=== PATIENT | female | born 1960 | race Caucasian/White ===

== ENCOUNTER 2016-07-07 14:15 | Inpatient (IN) ==
[2016-07-07] MEDS ORDERED: Acetaminophen 325 MG TABLET PO PRN (18:13)
[2016-07-07] MEDS ORDERED: Ondansetron 4 MG/2 ML VIAL IVP PRN (18:13)
[2016-07-07] MEDS ORDERED: Naloxone 0.4 MG/ML INJ IVP PRN (18:13)
[2016-07-07] MEDS: Pantoprazole 40 MG VIAL IVP SCH (19:56)
--- NOTE | 2016-07-07 20:01 | Internal Med History&Physical ---
<WolfgangZach - Last Filed: 07/07/16 22:19> Date of Encounter: 07/07/16 Time of Encounter: 19:56 Assessment and Plan (1) Decompensated hepatic cirrhosis Current visit: No Status: Acute Patient's presentation likely due to non-compliance as she has been without her medications for at least a month She certainly needs paracentesis, but her INR is 2.2 upon admission; will correct with 2 units FFP and 5 mg Vit K and recheck INR in AM Last paracentesis in February, fluid analysis showed transudative fluid Start Lasix IV 40 mg BID Avoid hepatotoxic agents, restart previously prescribed home medications: Aldactone and Rifaximin (2) Ascites Current visit: No Status: Acute Worsening ascities over past month secondary to medication non-compliance Will correct coagulopathy as above prior to paracentesis Start IV Lasix 40 mg BID, re-start Aldactone Qualifiers: Ascites type: due to alcoholic cirrhosis Qualified Code(s): K70.31 - Alcoholic cirrhosis of liver with ascites (3) Coagulopathy Current visit: No Status: Acute INR of 2.2 upon admission likely secondary to cirrhosis Will give 2 units FFP and 1 dose of vit K prior to paracentesis (4) Chronic anemia Current visit: Yes Status: Acute Hb initially 7.4, close to her baseline She currently does not have any signs/symptoms of bleeding MCV has been >100, will obtain B12/Folate levels in AM Patient has been typed and screened, may transfuse RBCs if next Hb drops below 7 (5) Thrombocytopenia Current visit: No Status: Chronic Chronic, platelets levels near baseline No active bleeding at this time, will correct coagulopathy as above (6) DVT prophylaxis Current visit: No Status: Acute SCDs in setting of coagulopathy and anemia Internal Medicine - H&P: HPI Chief complaint: abdominal distention Admitted From: Home Plans for Post Hospital Care: Home History of present illness: Ms. Shore is a 56 year old female who was transferred from the emergency department at [facility] with abdominal distention. She has a history of cirrhosis secondary to hepatitis C and was recently hospitalized last February and had 3 L removed from paracentesis. She states that she has been without medications for at least a month, including not having any diuretics, as she does not have a PCP and unable to get prescriptions. During this time, her belly has gotten progressively more distended and she experiences abdominal pain, shortness of breath with exertion and swelling in her lower extremities. She does not have chest pain, diarrhea, vomiting, or fevers, but does admit to 2 days of hematochezia last week that resolved on its own. She did see Dr. De La Cruz as outpatient one time after her previous hospitalization but has not followed up since. She denies needing frequent paracentesis, as her last one prior to February was roughly 3 years ago. Past Med Surg Social Fam HX - Past Medical History Medical history: asthma, cirrhosis, COPD, GERD, hepatitis Psychiatric history: anxiety, depression - Past Surgical History Surgical History: hysterectomy - Social History Smoking Status: Current every day smoker Smokeless Tobacco Status: No Alcohol use: none, rarely Drug use: none - Family History Sister Hx Family Endocrine Disorder: Yes (diabetes) Internal Medicine - H&P: Meds Lisinopril [Zestril] 5 mg PO DAILY 03/10/16 [History] Potassium Chloride [K-Tab ER] 20 meq PO DAILY 03/10/16 [History] Simethicone [Bicarsim] 80 mg PO AD 03/10/16 [History] Furosemide [Lasix] 20 mg PO DAILY #30 tablet 03/17/16 [Rx] Rifaximin [Xifaxan] 550 mg PO BID #60 tablet 03/17/16 [Rx] Spironolactone [Aldactone] 100 mg PO DAILY #60 tablet 03/17/16 [Rx] Allergies Sulfa (Sulfonamide Antibiotics) Allergy (Verified 07/07/16 11:55) Hives All Systems PM: A 10-system review of systems was performed and is negative for pertinent findings except as documented above in the HPI. - Constitutional Constitutional: no chills, no fever(s), no night sweats - EENT Eyes: no change in vision, no discharge, no pain, no photophobia Ears: no ear discharge, no ear pain, no tinnitus Nose, mouth and throat: no dysphagia, no nasal discharge, no neck pain, no sore throat - Cardiovascular Cardiovascular ROS IM: dyspnea, dyspnea on exertion, no chest pain, no diaphoresis, no lightheadedness, no palpitations, no syncope - Respiratory Respiratory: no cough, no dyspnea, no wheezing, no excessive phlegm production - Gastrointestinal Gastrointestinal: abdominal pain, hematochezia (last week, resolved on its own) , no diarrhea, no hematemesis, no melena, no nausea, no vomiting - Genitourinary Genitourinary: no change in urinary stream, no dysuria, no flank pain, no hematuria - Musculoskeletal Musculoskeletal ROS IM: no numbness, no tingling - Integumentary Integumentary IM: no rash, no unusual bruising - Neurological Neurological ROS: no confusion, no convulsions, no focal weakness, no numbness, no tingling, no tremor(s) - Hematologic/Lymphatic Hematologic/Lymphatic: no easy bruising - Constitutional Vitals: Temp Pulse Resp BP Pulse Ox 97.8 F 82 16 110/60 98 07/07/16 16:03 07/07/16 16:03 07/07/16 16:03 07/07/16 16:03 07/07/16 18:23 General appearance: Present: cooperative, mild distress (from abdominal discomfort), pleasant, answers questions appropriately - Head Head exam: Present: atraumatic, normocephalic - Eye Eye exam: Present: PERRL, conjuntiva pink, sclera anicteric - Neck Neck exam general surgery: Present: supple, trachea midline. Absent: lymphadenopathy - Respiratory Respiratory exam: Present: CTAB. Absent: accessory muscle use, rales, rhonchi, wheezes - Cardiovascular Cardiovascular exam: Present: RRR, +S1, +S2, systolic murmur. Absent: diastolic murmur, gallop, rubs - GI/Abdominal GI/Abdominal exam: Present: normal bowel sounds, soft, tenderness (worse in epigastric area), no peritoneal signs. Absent: distended - Extremities Exam Extremities exam: Present: pedal edema (2+ pitting), warm, radial pulses palpable and symetrical. Absent: calf tenderness, cyanotic - Neurological Exam Neurological exam: Present: alert, no focal deficits. Absent: facial droop, speech deficit - Skin Skin exam: Present: dry, intact <Supa Kumar - Last Filed: 07/08/16 06:36> Date of Encounter: 07/08/16 Internal Medicine - H&P: HPI History of present illness: Ms. Shore is a 56 year old female All Systems PM: A 10-system review of systems was performed and is negative for pertinent findings except as documented above in the HPI. - Constitutional Vitals: Temp Pulse Resp BP Pulse Ox 98.0 F 89 20 98/57 96 07/08/16 06:00 07/08/16 06:00 07/08/16 06:00 07/08/16 06:00 07/08/16 03:51 Internal Med - H&P Results - Labs CBC & Chem 7: 07/08/16 05:49 07/08/16 05:49 Labs: Short CBC 07/08/16 Range/Units 05:49 WBC 2.3 L (4.3-11.1) K/mcL Hgb 6.3 L (11.5-15.4) g/dL Hct 21.0 L (35.3-44.9) % Plt Count 84 L (140-400) K/mcL Neutrophils # 1.4 L (1.6-8.9) K/mcL BMP 07/08/16 05:49 Sodium 136 Potassium 3.4 L Chloride 104 Carbon Dioxide 24 BUN 6 L Creatinine 0.77 Glucose 91 Calcium 7.8 L Liver Function 07/08/16 Range/Units 05:49 Total Bilirubin 3.4 H (0.2-1.2) mg/dL AST 38 H (5-34) Units/L ALT 10 (0-55) Units/L Alkaline Phosphatase 93 (38-126) Units/L Albumin 2.0 L (3.5-5.0) g/dL - Attending Attestation I examined this patient and my medical decision-making was reviewed with the Resident Physician, Dr. Goss. I agree with the documented findings, disposition and treatment plan as described except to the extent set forth below. Patient presented to the hospital due to abdominal distention, bloating and difficulty breathing. On exam heart is regular rate and rhythm lungs are clear, abdomen is distended with large ascites, positive waves and dullness to percussion and flanks noted. Plan: Will treat patient with vitamin K. If his PEs for coagulopathy. Plan for therapeutic paracentesis once the coagulopathy has resolved.
[2016-07-07 20:41] LABS: INR 2.2
[2016-07-07] MEDS: *HR* OxyCODONE Immed Rel 5 MG TABLET PO PRN (21:32)
[2016-07-07] MEDS: Nicotine 14 MG PATCH.TD24 TD SCH (21:32)
[2016-07-07] MEDS ORDERED: *HR* Phytonadione 5 MG TABLET PO ONE (22:04)
[2016-07-07] MEDS: Furosemide 40 MG/4 ML VIAL IVP SCH (23:27)
[2016-07-08] MEDS ORDERED: 0.9 % Sodium Chloride 250 ML ONE ×2 (01:59→18:30)
[2016-07-08] MEDS: *HR* OxyCODONE Immed Rel 5 MG TABLET PO PRN ×4 (05:03→23:54)
[2016-07-08 06:05] LABS: Basophils % 0.4 %; Hemoglobin 6.3 g/dL (11.5-15.4); Red Cell Distribution Width 17.1 % (11.5-14.5)
[2016-07-08 06:07] LABS: Eosinophils # 0.1 K/mcL (0.0-0.6); Eosinophils % 2.6 %; Immature Platelets 3.5 % (1.1-6.1); Lymphocytes # 0.5 K/mcL (0.6-4.6); Lymphocytes % 22.6 %; Mean Corpuscular Hemoglobin 30.3 pg (28.0-33.3); Mean Platelet Volume 11.7 fL (9.4-12.4); Monocytes # 0.3 K/mcL (0.0-1.3); Monocytes % 12.2 %; Neutrophils # 1.4 K/mcL (1.6-8.9); Red Blood Count 2.08 M/mcL (3.82-4.97); Segmented Neutrophils % 62.2 %
[2016-07-08 06:09] LABS: Platelet Count 84 K/mcL (140-400)
[2016-07-08 06:10] LABS: INR 1.9; Prothrombin Time 20.7 Seconds (9.4-12.1)
[2016-07-08 06:21] LABS: Alanine Aminotransferase 10 Units/L (0-55); Albumin/Globulin Ratio 0.4 (1.1-2.2); Alkaline Phosphatase 93 Units/L (38-126); Aspartate Amino Transferase 38 Units/L (5-34); BUN/Creatinine Ratio 8 (6-26); Bilirubin,Total 3.4 mg/dL (0.2-1.2); Blood Urea Nitrogen 6 mg/dL (7-20); Calcium 7.8 mg/dL (8.6-10.8); Carbon Dioxide 24 mEq/L (19-29); Chloride 104 mEq/L (98-109); Glucose 91 mg/dL (70-99); Magnesium 1.1 mg/dL (1.6-2.6); Osmolality,Calculated 279 (280-300); Phosphorous 3.5 mg/dL (2.3-4.7); Potassium 3.4 mEq/L (3.5-4.5); Sodium 136 mEq/L (136-145); eGFR For African Americans > 60 (> 60); eGFR For Non-African Americans > 60 (> 60)
[2016-07-08 06:53] LABS: Folate 4.5 ng/mL (7.0-31.4)
[2016-07-08] MEDS: Furosemide 40 MG/4 ML VIAL IVP SCH ×2 (08:21→22:09)
[2016-07-08] MEDS: Pantoprazole 40 MG VIAL IVP SCH (08:21)
[2016-07-08] MEDS: Nicotine 14 MG PATCH.TD24 TD SCH (08:21)
[2016-07-08] MEDS: (Rifaximin [Xifaxan] 550 MG) PO SCH ×2 (08:28→22:10)
[2016-07-08] MEDS ORDERED: Magnesium Sulfate 2 GM in D5% in Water 100 ML IV ONE (13:02)
--- NOTE | 2016-07-08 15:10 | Internal Med Progress Note ---
Date of Encounter: 07/08/16 Time of Encounter: 13:00 - Assessment and plan (1) Ascites Current Visit: No Status: Acute Assessment and plan: Pt has massive ascites. She has been out of her medications prior to admission. INR still too high for paracentesis. Will try to get it lower to Qualifiers: Ascites type: due to alcoholic cirrhosis Qualified Code(s): K70.31 - Alcoholic cirrhosis of liver with ascites (2) Coagulopathy Current Visit: Yes Status: Acute Assessment and plan: Recheck INR. Most likely needs more FFP and Vit K and rechecked. Coagulopathy due to liver disease. (3) Chronic anemia Current Visit: Yes Status: Acute Assessment and plan: No overt evidence of bleeding. Recheck today and transfuse if less than 7. (4) Hepatitis C Current Visit: No Status: Chronic Qualifiers: Viral hepatitis chronicity: chronic Hepatic coma status: without hepatic coma Qualified Code(s): B18.2 - Chronic viral hepatitis C (5) Thrombocytopenia Current Visit: No Status: Chronic Assessment and plan: Monitoring platelets. (6) Tobacco abuse Current Visit: No Status: Chronic Assessment and plan: Cessation counselling. - Subjective Interval history: Ms. Shore is currently admitted for acute respiratory distress due to massive ascites from cirrhosis. She had run out of her medications prior to admission. She is high risk due to potential for worsening respiratory symptoms and coagulopathy. She has been receiving FFP. Ms. Shore is breathing OK but is having pain. No fever or chills. Just finished FFP. No chest pain. No cough. INR has been too high for paracentesis. She denies nausea and vomiting at this time. - Constitutional Vitals: Temp Pulse Resp BP Pulse Ox 98.1 F 80 16 97/57 95 07/08/16 13:08 07/08/16 13:08 07/08/16 13:08 07/08/16 13:08 07/08/16 13:08 General appearance: Present: cooperative, pleasant, answers questions appropriately - Head Head exam: Present: normocephalic - Eye Eye exam: Present: conjuntiva pink - ENT ENT exam: Present: mucous membranes moist - Respiratory Respiratory exam: Present: decreased breath sounds, CTAB - Cardiovascular Cardiovascular exam: Present: RRR, systolic murmur. Absent: tachycardia - GI/Abdominal Additional comments: Massive ascites noted. Mild diffuse tenderness without rebound, rigidity or guarding - Extremities Exam Extremities exam: Present: pedal edema, warm - Neurological Exam Neurological exam: Present: alert, oriented X3 - Psychiatric Psychiatric exam: Present: normal affect, normal mood - Skin Skin exam: Present: warm. Absent: rash Internal Medicine: Result - Labs CBC & Chem 7: 07/08/16 05:49 07/08/16 05:49 Labs: Short CBC 07/08/16 Range/Units 05:49 WBC 2.3 L (4.3-11.1) K/mcL Hgb 6.3 L (11.5-15.4) g/dL Hct 21.0 L (35.3-44.9) % Plt Count 84 L (140-400) K/mcL Neutrophils # 1.4 L (1.6-8.9) K/mcL BMP 07/08/16 05:49 Sodium 136 Potassium 3.4 L Chloride 104 Carbon Dioxide 24 BUN 6 L Creatinine 0.77 Glucose 91 Calcium 7.8 L Liver Function 07/08/16 Range/Units 05:49 Total Bilirubin 3.4 H (0.2-1.2) mg/dL AST 38 H (5-34) Units/L ALT 10 (0-55) Units/L Alkaline Phosphatase 93 (38-126) Units/L Albumin 2.0 L (3.5-5.0) g/dL - ABG Interpretation ABG results: PT/INR, D-dimer PT 20.7 Seconds (9.4-12.1) H 07/08/16 05:49 Consult Discharge Plan - Plan Referrals: NO,PCP [Primary Care Provider] -
[2016-07-08 17:44] LABS: Hematocrit 20.4 % (35.3-44.9); Hemoglobin 6.2 g/dL (11.5-15.4)
[2016-07-08 17:48] LABS: INR 1.8; Prothrombin Time 20.1 Seconds (9.4-12.1)
[2016-07-08] MEDS ORDERED: 0.9 % Sodium Chloride 250 ML IVC PRN (18:03)
[2016-07-08] MEDS ORDERED: *HR* Phytonadione 5 MG TABLET PO ONE (18:04)
[2016-07-09 05:20] LABS: Alanine Aminotransferase 14 Units/L (0-55); Albumin/Globulin Ratio 0.4 (1.1-2.2); Alkaline Phosphatase 91 Units/L (38-126); Aspartate Amino Transferase 46 Units/L (5-34); BUN/Creatinine Ratio 9 (6-26); Bilirubin,Total 3.8 mg/dL (0.2-1.2); Blood Urea Nitrogen 7 mg/dL (7-20); Calcium 8.1 mg/dL (8.6-10.8); Carbon Dioxide 24 mEq/L (19-29); Chloride 102 mEq/L (98-109); Globulin 4.9 g/dL (2.4-3.5); Glucose 95 mg/dL (70-99); Magnesium 1.5 mg/dL (1.6-2.6); Osmolality,Calculated 272 (280-300); Potassium 3.6 mEq/L (3.5-4.5); Sodium 132 mEq/L (136-145); Total Protein 6.9 g/dL (6.0-8.3); eGFR For African Americans > 60 (> 60); eGFR For Non-African Americans > 60 (> 60)
[2016-07-09] MEDS: *HR* OxyCODONE Immed Rel 5 MG TABLET PO PRN ×2 (06:17→12:33)
[2016-07-09 06:47] LABS: Hematocrit 25.2 % (35.3-44.9); Hemoglobin 7.9 g/dL (11.5-15.4); Immature Platelets 3.8 % (1.1-6.1); Mean Corpuscular HGB Conc 31.3 g/dL (31.6-35.5); Mean Corpuscular Hemoglobin 30.2 pg (28.0-33.3); Mean Corpuscular Volume 96.2 fL (83.0-100.0); Mean Platelet Volume 11.8 fL (9.4-12.4); Red Blood Count 2.62 M/mcL (3.82-4.97); Red Cell Distribution Width 18.8 % (11.5-14.5)
[2016-07-09] MEDS ORDERED: Magnesium Sulfate 2 GM in D5% in Water 100 ML IV ONE (08:09)
[2016-07-09] MEDS: Furosemide 40 MG/4 ML VIAL IVP SCH ×2 (09:14→22:13)
[2016-07-09] MEDS: (Rifaximin [Xifaxan] 550 MG) PO SCH ×2 (09:18→22:13)
[2016-07-09] MEDS: Nicotine 14 MG PATCH.TD24 TD SCH (09:18)
[2016-07-09] MEDS: Pantoprazole 40 MG VIAL IVP SCH (09:18)
[2016-07-09 09:45] LABS: INR 1.8; Prothrombin Time 20.2 Seconds (9.4-12.1)
[2016-07-09] MEDS ORDERED: Lactulose Oral Soln 20 GM/30 ML UDC PO ONE (11:31)
[2016-07-09] MEDS ORDERED: *HR* Phytonadione 5 MG TABLET PO ONE (11:31)
--- NOTE | 2016-07-09 13:47 | Internal Med Progress Note ---
Date of Encounter: 07/09/16 Time of Encounter: 12:00 - Assessment and plan (1) Ascites Current Visit: No Status: Acute Assessment and plan: Massive ascites persists but is softer today. She does not have respiratory compromise. No suspicion for SBP. Needs paracentesis but INR still 1.8. Give more vitamin K and recheck tomorrow. Continue diuretics. Qualifiers: Ascites type: due to alcoholic cirrhosis Qualified Code(s): K70.31 - Alcoholic cirrhosis of liver with ascites (2) Coagulopathy Current Visit: Yes Status: Acute Assessment and plan: More Vit K given today. Recheck INR tomorrow. (3) Chronic anemia Current Visit: Yes Status: Acute Assessment and plan: Appears to be bone marrow suppression. Transfused with improvement yesterday. Recheck tomorrow. (4) Hepatitis C Current Visit: No Status: Chronic Assessment and plan: Following. Qualifiers: Viral hepatitis chronicity: chronic Hepatic coma status: without hepatic coma Qualified Code(s): B18.2 - Chronic viral hepatitis C (5) Thrombocytopenia Current Visit: No Status: Chronic Assessment and plan: Monitoring platelets. Related to liver disease (6) Tobacco abuse Current Visit: No Status: Chronic Assessment and plan: Cessation counselling. - Subjective Interval history: Ms. Shore is currently admitted for acute respiratory distress due to massive ascites from cirrhosis. She had run out of her medications prior to admission. She is high risk due to potential for worsening respiratory symptoms and coagulopathy. Ms. Shore is still having some abdominal pain. She thinks her abdomen is softer. Has been diuresing well. Magnesium was low this AM. INR still elevated. Also feels constipated and would like some lactulose. - Constitutional Vitals: Temp Pulse Resp BP Pulse Ox 98.3 F 75 16 95/63 96 07/09/16 10:57 07/09/16 10:57 07/09/16 10:57 07/09/16 10:57 07/09/16 10:57 General appearance: Present: cooperative, A&O X 3, pleasant, answers questions appropriately - Head Head exam: Present: normocephalic - Eye Eye exam: Present: conjuntiva pink - ENT ENT exam: Present: mucous membranes moist - Respiratory Respiratory exam: Present: decreased breath sounds, CTAB - Cardiovascular Cardiovascular exam: Present: RRR, systolic murmur. Absent: tachycardia - GI/Abdominal Additional comments: Distended with fluid wave. Minimal diffuse tenderness with deep palpation. - Extremities Exam Extremities exam: Present: pedal edema, warm. Absent: tenderness - Neurological Exam Neurological exam: Present: alert, oriented X3, no focal deficits - Psychiatric Psychiatric exam: Present: normal affect, normal mood - Skin Skin exam: Present: dry, warm. Absent: rash Internal Medicine: Result - Labs CBC & Chem 7: 07/09/16 06:08 07/09/16 04:57 Labs: Short CBC 07/08/16 07/09/16 Range/Units 17:34 06:08 WBC 2.5 L (4.3-11.1) K/mcL Hgb 6.2 L 7.9 L D (11.5-15.4) g/dL Hct 20.4 L 25.2 L (35.3-44.9) % Plt Count 74 L (140-400) K/mcL BMP 07/09/16 04:57 Sodium 132 L Potassium 3.6 Chloride 102 Carbon Dioxide 24 BUN 7 Creatinine 0.77 Glucose 95 Calcium 8.1 L Liver Function 07/09/16 Range/Units 04:57 Total Bilirubin 3.8 H (0.2-1.2) mg/dL AST 46 H (5-34) Units/L ALT 14 (0-55) Units/L Alkaline Phosphatase 91 (38-126) Units/L Albumin 2.0 L (3.5-5.0) g/dL - ABG Interpretation ABG results: PT/INR, D-dimer PT 20.2 Seconds (9.4-12.1) H 07/09/16 09:33 Consult Discharge Plan - Plan Referrals: NO,PCP [Primary Care Provider] -
[2016-07-09] MEDS ORDERED: Simethicone 80 MG TAB.CHEW PO PRN (13:52)
[2016-07-09] MEDS ORDERED: clonazePAM 1 MG TABLET PO PRN (13:52)
[2016-07-09] MEDS ORDERED: Lactulose Oral Soln 20 GM/30 ML UDC PO PRN (13:52)
[2016-07-10] MEDS: *HR* OxyCODONE Immed Rel 5 MG TABLET PO PRN ×5 (01:27→23:35)
[2016-07-10 04:52] LABS: INR 1.8; Prothrombin Time 19.9 Seconds (9.4-12.1)
[2016-07-10 04:55] LABS: Mean Platelet Volume 12.1 fL (9.4-12.4)
[2016-07-10 04:57] LABS: Hematocrit 25.5 % (35.3-44.9); Immature Platelets 5.3 % (1.1-6.1); Mean Corpuscular HGB Conc 31.4 g/dL (31.6-35.5); Mean Corpuscular Hemoglobin 30.1 pg (28.0-33.3); Mean Corpuscular Volume 95.9 fL (83.0-100.0); Red Blood Count 2.66 M/mcL (3.82-4.97); Red Cell Distribution Width 18.6 % (11.5-14.5)
[2016-07-10 05:09] LABS: Alanine Aminotransferase 12 Units/L (0-55); Albumin/Globulin Ratio 0.4 (1.1-2.2); Alkaline Phosphatase 86 Units/L (38-126); Aspartate Amino Transferase 38 Units/L (5-34); BUN/Creatinine Ratio 10 (6-26); Bilirubin,Total 2.7 mg/dL (0.2-1.2); Blood Urea Nitrogen 8 mg/dL (7-20); Carbon Dioxide 29 mEq/L (19-29); Chloride 100 mEq/L (98-109); Globulin 4.9 g/dL (2.4-3.5); Glucose 102 mg/dL (70-99); Magnesium 1.3 mg/dL (1.6-2.6); Osmolality,Calculated 279 (280-300); Potassium 3.3 mEq/L (3.5-4.5); Sodium 135 mEq/L (136-145); Total Protein 6.9 g/dL (6.0-8.3); eGFR For African Americans > 60 (> 60); eGFR For Non-African Americans > 60 (> 60)
[2016-07-10] MEDS: Furosemide 40 MG/4 ML VIAL IVP SCH ×2 (08:37→20:59)
[2016-07-10] MEDS: Pantoprazole 40 MG VIAL IVP SCH (08:37)
[2016-07-10] MEDS: Nicotine 14 MG PATCH.TD24 TD SCH (08:38)
[2016-07-10] MEDS: (Rifaximin [Xifaxan] 550 MG) PO SCH ×2 (08:38→21:02)
--- NOTE | 2016-07-10 10:29 | Internal Med Progress Note ---
<Howard Guajardo - Last Filed: 07/10/16 14:56> Date of Encounter: 07/10/16 Time of Encounter: 10:27 - Assessment and plan (1) Ascites Current Visit: No Status: Acute Assessment and plan: 56-year-old female history of hepatitis C, cirrhosis presents with ascites likely secondary to cirrhosis. Patient states that her abdominal distention has improved since admission. She does not have any difficulty breathing. All she needs paracentesis her INR remains 1.8. She was given vitamin K yesterday however that did not change her INR. We will continue diuretics. Also patient will receive 1 unit of FFP. Repeat INR tomorrow. Qualifiers: Ascites type: due to alcoholic cirrhosis Qualified Code(s): K70.31 - Alcoholic cirrhosis of liver with ascites (2) DVT prophylaxis Current Visit: No Status: Acute Assessment and plan: EPCDS. (3) Hepatitis C Current Visit: No Status: Chronic Assessment and plan: Patient is a history of hepatitis C. She has been following Dr. Mejia patient. Patient stated that Dr. Lai is going to evaluate her cirrhosis however it should not want to undergo evaluation. Patient understands and need for treatment for hepatitis C. She would like referral to Dr. mejia on discharge. Qualifiers: Viral hepatitis chronicity: chronic Hepatic coma status: without hepatic coma Qualified Code(s): B18.2 - Chronic viral hepatitis C (4) Thrombocytopenia Current Visit: No Status: Chronic Assessment and plan: Related to cirrhosis. Patient's platelets have been stable. Repeat CBC tomorrow. (5) Tobacco abuse Current Visit: No Status: Chronic Assessment and plan: Patient has been advised to the benefits of smoking cessation. - Subjective Interval history: 56-year-old female with history of hepatitis C cirrhosis,chronic anemia presents with acute respiratory distress secondary to massive ascites from cirrhosis.this morning pates that herabdominal distention is reduced compared to adm. She has been iuresing well. She denies chest pain, shortness of breath abdominal pain, like cramps. - Constitutional Vitals: Temp Pulse Resp BP Pulse Ox 98 F 80 16 88/50 95 07/10/16 06:50 07/10/16 06:50 07/10/16 06:50 07/10/16 06:50 07/10/16 06:50 General appearance: Present: cooperative, A&O X 3, pleasant, answers questions appropriately - Head Head exam: Present: atraumatic, normocephalic - Eye Eye exam: Present: PERRL, conjuntiva pink, sclera anicteric - Neck Neck exam general surgery: Present: supple, trachea midline. Absent: lymphadenopathy - Respiratory Respiratory exam: Present: CTAB. Absent: accessory muscle use, rales, rhonchi, wheezes - Cardiovascular Cardiovascular exam: Present: RRR, +S1, +S2. Absent: diastolic murmur, gallop, rubs, systolic murmur - GI/Abdominal GI/Abdominal exam: Present: distended (secondary to ascites), normal bowel sounds, soft, no peritoneal signs. Absent: tenderness - Extremities Exam Extremities exam: Present: warm, radial pulses palpable and symetrical. Absent : calf tenderness, cyanotic, pedal edema - Neurological Exam Neurological exam: Present: CN II-XII intact, oriented X3, no focal deficits. Absent: pronater drift, facial droop, speech deficit - Skin Skin exam: Present: dry, intact Internal Medicine: Result - Labs CBC & Chem 7: 07/10/16 04:09 07/10/16 04:09 Labs: Short CBC 07/10/16 Range/Units 04:09 WBC 2.7 L (4.3-11.1) K/mcL Hgb 8.0 L (11.5-15.4) g/dL Hct 25.5 L (35.3-44.9) % Plt Count 74 L (140-400) K/mcL BMP 07/10/16 04:09 Sodium 135 L Potassium 3.3 L Chloride 100 Carbon Dioxide 29 BUN 8 Creatinine 0.81 Glucose 102 H Calcium 8.0 L Liver Function 07/10/16 Range/Units 04:09 Total Bilirubin 2.7 H (0.2-1.2) mg/dL AST 38 H (5-34) Units/L ALT 12 (0-55) Units/L Alkaline Phosphatase 86 (38-126) Units/L Albumin 2.0 L (3.5-5.0) g/dL - ABG Interpretation ABG results: PT/INR, D-dimer PT 19.9 Seconds (9.4-12.1) H 07/10/16 04:09 - VTE Documentation of Mechanical Device: Intermittent pneumatic compression device Consult Discharge Plan - Plan Instructions: Anemia (GEN) Referrals: NO,PCP [Primary Care Provider] - <JordyTomy Freire - Last Filed: 07/10/16 18:32> Date of Encounter: 07/10/16 - Assessment and plan (1) Ascites Current Visit: No Status: Acute Qualifiers: Ascites type: due to alcoholic cirrhosis Qualified Code(s): K70.31 - Alcoholic cirrhosis of liver with ascites (2) Coagulopathy Current Visit: Yes Status: Acute (3) Chronic anemia Current Visit: Yes Status: Acute (4) Hepatitis C Current Visit: No Status: Chronic Qualifiers: Viral hepatitis chronicity: chronic Hepatic coma status: without hepatic coma Qualified Code(s): B18.2 - Chronic viral hepatitis C (5) Thrombocytopenia Current Visit: No Status: Chronic (6) Tobacco abuse Current Visit: No Status: Chronic - Constitutional Vitals: Temp Pulse Resp BP Pulse Ox 98.2 F 85 18 113/63 95 07/10/16 17:08 07/10/16 17:08 07/10/16 17:08 07/10/16 17:08 07/10/16 17:08 Internal Medicine: Result - Labs CBC & Chem 7: 07/10/16 04:09 07/10/16 04:09 Labs: Short CBC 07/10/16 Range/Units 04:09 WBC 2.7 L (4.3-11.1) K/mcL Hgb 8.0 L (11.5-15.4) g/dL Hct 25.5 L (35.3-44.9) % Plt Count 74 L (140-400) K/mcL BMP 07/10/16 04:09 Sodium 135 L Potassium 3.3 L Chloride 100 Carbon Dioxide 29 BUN 8 Creatinine 0.81 Glucose 102 H Calcium 8.0 L Liver Function 07/10/16 Range/Units 04:09 Total Bilirubin 2.7 H (0.2-1.2) mg/dL AST 38 H (5-34) Units/L ALT 12 (0-55) Units/L Alkaline Phosphatase 86 (38-126) Units/L Albumin 2.0 L (3.5-5.0) g/dL - ABG Interpretation ABG results: PT/INR, D-dimer PT 19.9 Seconds (9.4-12.1) H 07/10/16 04:09 - Attending Attestation I examined this patient and my medical decision-making was reviewed with the Resident Physician on 07/10/16. I agree with the documented findings, disposition and treatment plan as described except to the extent set forth below. Ms. Shore is currently admitted for massive ascites and cirrhosis. She remains moderate to high risk due to potential for worsening respiratory status. Ms. Shore feels her abdomen is decreasing some. No worsening pain. No cough. H/ H stable today. No fever or chills. Exam Alert. Comfortable Heart reg no wheeze Abd soft with fluid wave I/P 1. Ascites 2. Cirrhosis 3. Thrombocytopenia 4. coagulopathy Further diagnoses and plan as above. ? d/c after paracentesis
[2016-07-10] MEDS: Folic Acid 1 MG TABLET PO SCH (12:48)
[2016-07-11] MEDS: *HR* OxyCODONE Immed Rel 5 MG TABLET PO PRN (04:51)
[2016-07-11 05:10] LABS: Hemoglobin 7.6 g/dL (11.5-15.4); Mean Corpuscular Volume 94.5 fL (83.0-100.0); Red Cell Distribution Width 18.4 % (11.5-14.5)
[2016-07-11 05:12] LABS: Hematocrit 24.1 % (35.3-44.9); INR 1.9; Immature Platelets 5.7 % (1.1-6.1); Mean Corpuscular HGB Conc 31.5 g/dL (31.6-35.5); Mean Corpuscular Hemoglobin 29.8 pg (28.0-33.3); Mean Platelet Volume 12.4 fL (9.4-12.4); Prothrombin Time 20.6 Seconds (9.4-12.1); Red Blood Count 2.55 M/mcL (3.82-4.97)
[2016-07-11 05:27] LABS: BUN/Creatinine Ratio 16 (6-26); Blood Urea Nitrogen 12 mg/dL (7-20); Calcium 7.9 mg/dL (8.6-10.8); Carbon Dioxide 27 mEq/L (19-29); Chloride 100 mEq/L (98-109); Glucose 106 mg/dL (70-99); Osmolality,Calculated 276 (280-300); Potassium 3.6 mEq/L (3.5-4.5); Sodium 133 mEq/L (136-145); eGFR For African Americans > 60 (> 60); eGFR For Non-African Americans > 60 (> 60)
[2016-07-11] MEDS ORDERED: 0.9 % Sodium Chloride 500 ML ONE (09:11)
--- NOTE | 2016-07-11 11:13 | Discharge Summary ---
Addendum entered and electronically signed by Howard Guajardo DO 16:03: [facility] says that patient is not allowed to see any [facility]. She will have to find PCP outside of [facility]. Original Note: <Howard Guajardo - Last Filed: 07/11/16 11:05> Date of Encounter: 07/11/16 Time of Encounter: 11:06 - Discharge Diagnosis (1) Ascites Priority: Primary Status: Acute Qualifiers: Ascites type: due to alcoholic cirrhosis Qualified Code(s): K70.31 - Alcoholic cirrhosis of liver with ascites (2) DVT prophylaxis Priority: Secondary Status: Acute (3) Hepatitis C Priority: Secondary Status: Chronic Qualifiers: Viral hepatitis chronicity: chronic Hepatic coma status: without hepatic coma Qualified Code(s): B18.2 - Chronic viral hepatitis C (4) Thrombocytopenia Priority: Secondary Status: Chronic (5) Tobacco abuse Priority: Secondary Status: Chronic - Discharge Medications Prescriptions: OxyCODONE Immed Rel [Roxicodone 15 MG] 15 mg PO Q8HR PRN #21 tablet PRN Reason: Pain Folic Acid 5 mg PO DAILY #90 tablet Furosemide [Lasix] 40 mg PO DAILY #90 tablet Lactulose [Enulose] 20 gm PO Q6H PRN #120 solution PRN Reason: Constipation Potassium Chloride [K-Tab ER] 20 meq PO TID #270 tablet.er Simethicone [Bicarsim] 180 mg PO BID PRN #180 tablet PRN Reason: GAS Spironolactone [Aldactone] 100 mg PO DAILY #90 tablet Home Medications: ClonazePAM [Klonopin] 1 mg PO BID PRN 07/08/16 [History] Folic Acid 5 mg PO DAILY #90 tablet 07/11/16 [Rx] Furosemide [Lasix] 40 mg PO DAILY #90 tablet 07/11/16 [Rx] Lactulose [Enulose] 20 gm PO Q6H PRN #120 solution 07/11/16 [Rx] OxyCODONE Immed Rel [Roxicodone 15 MG] 15 mg PO Q8HR PRN #21 tablet 07/11/16 [Rx ] Potassium Chloride [K-Tab ER] 20 meq PO TID #270 tablet.er 07/11/16 [Rx] Simethicone [Bicarsim] 180 mg PO BID PRN #180 tablet 07/11/16 [Rx] Spironolactone [Aldactone] 100 mg PO DAILY #90 tablet 07/11/16 [Rx] Allergies/Adverse Reactions: Allergies Sulfa (Sulfonamide Antibiotics) Allergy (Verified 07/07/16 11:55) Hives Date of admission: 07/07/16 22:32 Primary care physician: PCP NO Consults: 07/10/16 09:31 Consult to Technical Solutions Consultant [CONS] Routine Reason for SW Consult: Poor follow-up since last hospitalization. Discharging clinician: Howard Guajardo Anticipated date of discharge: 07/11/16 - Patient Status Disposition: Home, Self-Care Condition: Good Functional capacity at discharge: independent ambulation Overall status at discharge: patient is progressing back to baseline - Discharge Instructions Instructions: Spironolactone (By mouth), Furosemide (By mouth), Oxycodone/ Acetaminophen (By mouth), Potassium Chloride (By mouth), Simethicone (By mouth) , Folic Acid (By mouth), Lactulose (By mouth), Cirrhosis (DC), Cirrhosis (GEN), Viral Hepatitis C (DC), Viral Hepatitis C (GEN), Chronic Obstructive Pulmonary Disease (DC), Anemia (GEN), Cigarette Smoking and Your Health, Ventilated Rib Fitter ( GEN) Follow Up With: Kailee Montanez CNP [Advanced Practice Nurse] - 07/17/16 12:30 pm - Diet and Activity Activity: increase activity as tolerated Diet: advance to your usual diet Hospital course: Ms. Shore is a 56 year old female with history of asthma, cirrhosis, COPD, GERD, hepatitis C presented from [place] emergency department with abdominal distention. Patient was last hospitalized in February and 3 L of fluid was removed from paracentesis. Patient states she ran out of her medications and did not have any diuretics. She does not have a PCP and was unable to get new prescriptions. Due to the belly distention patient became short of breath and also had swelling in her lower extremities. She denied having nausea, diarrhea. Patient stated she had hematochezia 2 days ago before admission but has resolved. Patient's INR was 2.2 upon admission. She was given 2 units of FFP and 5 mg vitamin K before another paracentesis can be done. She was also started on IV Lasix. She was also started on spironolactone. Furthermore patient has chronic anemia. Her B12 levels were normal while her folate level was low. Patient was started on 5 mg of folic acid. For the next 2 days patient's INR decreased to 1.8. She lost considerable fluid from her belly and her shortness of breath improved. Patient's leg edema resolved. And she said her abdominal pain improved. Today patient's blood pressure was stable. She underwent paracentesis after receiving 1 unit of FFP. There were no complications during the procedure. She was then given albumin. Patient's blood pressure was stable. She was able to tolerate her diet. She is able to independently ambulate. Patient has approved Dr. Guajardo as her new PCP. She will follow-up within the next 7 days. - Time Spent with Patient Total time spent providing and/or coordinating discharge services: - Constitutional Vitals: Temp Pulse Resp BP Pulse Ox 98.2 F 78 18 96/54 94 L 07/11/16 09:32 07/11/16 09:32 07/11/16 09:32 07/11/16 09:32 07/11/16 09:32 General appearance: Present: cooperative, A&O X 3, pleasant, answers questions appropriately - Head Head exam: Present: atraumatic, normocephalic - Eye Eye exam: Present: PERRL, conjuntiva pink, sclera anicteric - Neck Neck exam general surgery: Present: supple, trachea midline. Absent: lymphadenopathy - Respiratory Respiratory exam: Present: CTAB. Absent: accessory muscle use, rales, rhonchi, wheezes - Cardiovascular Cardiovascular exam: Present: RRR, +S1, +S2. Absent: diastolic murmur, gallop, rubs, systolic murmur - GI/Abdominal GI/Abdominal exam: Present: distended (Improved from yesterday), normal bowel sounds, soft, no peritoneal signs. Absent: tenderness - Extremities Exam Extremities exam: Present: warm, radial pulses palpable and symetrical. Absent : calf tenderness, cyanotic, pedal edema - Neurological Exam Neurological exam: Present: CN II-XII intact, oriented X3, no focal deficits. Absent: pronater drift, facial droop, speech deficit - Skin Skin exam: Present: dry, intact - VTE Documentation of Mechanical Device: Intermittent pneumatic compression device <Tomy Spence - Last Filed: 07/11/16 19:01> Date of Encounter: 07/11/16 - Discharge Diagnosis (1) Ascites Status: Acute Qualifiers: Ascites type: due to alcoholic cirrhosis Qualified Code(s): K70.31 - Alcoholic cirrhosis of liver with ascites (2) Coagulopathy Priority: Secondary Status: Acute (3) Chronic anemia Priority: Secondary Status: Acute (4) Hepatitis C Status: Chronic Qualifiers: Viral hepatitis chronicity: chronic Hepatic coma status: without hepatic coma Qualified Code(s): B18.2 - Chronic viral hepatitis C (5) Thrombocytopenia Status: Chronic (6) Tobacco abuse Status: Chronic Date of admission: 07/07/16 22:32 Primary care physician: PCP NO Consults: 07/10/16 09:31 Consult to Technical Solutions Consultant [CONS] Routine Reason for SW Consult: Poor follow-up since last hospitalization. Hospital course: Ms. Shore is a 56 year old female - Time Spent with Patient Total time spent providing and/or coordinating discharge services: 41min - Constitutional Vitals: Temp Pulse Resp BP Pulse Ox 98.3 F 83 18 112/64 95 07/11/16 11:15 07/11/16 11:15 07/11/16 11:15 07/11/16 15:00 07/11/16 11:15 - Attending Attestation I examined this patient and my medical decision-making was reviewed with the Resident Physician on 07/11/16. I agree with the documented findings, disposition and treatment plan as described except to the extent set forth below. Ms. Shore is doing better. No new issues noted. Ready for discharge today. Exam Alert. Comfortable Heart reg No wheeze Abd less distended Plan D/C today Follow up with PCP.
[2016-07-11] MEDS: Nicotine 14 MG PATCH.TD24 TD SCH (11:27)
[2016-07-11] MEDS: Furosemide 40 MG/4 ML VIAL IVP SCH (11:27)
[2016-07-11] MEDS: (Rifaximin [Xifaxan] 550 MG) PO SCH (11:29)
[2016-07-11] MEDS: Folic Acid 1 MG TABLET PO SCH (13:36)
[2016-07-11 15:10] VITALS: BP 112/64
--- NOTE | 2016-07-13 15:02 | Procedure Note ---
<Clarita Martines - Last Filed: 07/13/16 14:42> Date of procedure: 07/11/16 Pre-op diagnosis: Cirrhosis with Ascites Post-op diagnosis: same Procedure: Procedure: Therapeutic Paracentesis Indication: Cirrhosis with Ascites, abdominal distension with impaired respiratory mechanics. Operators: Clarita Martines PGY-3 Howard Guajardo PGY-1 Attending Physician: Dr. Tomy Spence Patient has cirrhosis with ascites and documented long-term alcohol use with concomittant hepatitis C, known recurrent ascites prompting therapeutic paracentesis. Informed consent was obtained. Benefits, alternatives, and risks including bleeding, infection, organ damage, need for repeat procedure was discussed and patient voiced understanding and elected to proceed. Prior to procedure, patient had infusion of FFP, vitals on continuous monitor. A time-out was completed, verifying correct patient, procedure, site, positioning, and allergies. Ultrasound guidance was used to locate and bhavana an ascitic pocket in the left lower abdominal region. Patient was positioned, prepped, and draped in the usual sterile fashion. 1% Lidocaine was used to anesthetize the area. A standard paracentesis kit needle was introduced into the peritoneal space and 400 cc clear straw-colored fluid was removed. Complications: None EBL: Minimal The patient tolerated the procedure well. Vitals were taken afterwards and patient remained hemodynamically stable. She finished FFP and albumin infusion, noted improved breathing and appropriate for discharge. Anesthesia: local Surgeon: Clarita Martines (Attending physician: Dr. Tomy Spence) Director Of Customer Service: Howard Guajardo Estimated blood loss (cc): 5 Pathology: none sent Condition: stable Disposition: no change <Tomy Spence - Last Filed: 07/13/16 17:01> - Attending Attestation I examined this patient and my medical decision-making was reviewed with the / Resident Physician. I agree with the documented findings, disposition and treatment plan as described except to the extent set forth below. I was present during the procedure.
== END 2016-07-11 16:28 | disposition home or self-care (01) | DRG 280 ==
LOC: 2NENU
PROVIDERS: ADMIT Internal Medicine; ATTEND Internal Medicine

== ENCOUNTER 2016-09-28 15:15 | Observation (INO) ==
[2016-09-28] MEDS ORDERED: Ondansetron ODT 4 MG TAB.RAPDIS SL PRN (20:39)
[2016-09-28] MEDS ORDERED: Naloxone 0.4 MG/ML INJ IVP PRN (20:39)
[2016-09-28] MEDS ORDERED: *HR* OxyCODONE Immed Rel 5 MG TABLET PO ONE (20:42)
[2016-09-28] MEDS ORDERED: Furosemide 20 MG/2 ML VIAL IVP ONE (20:45)
--- NOTE | 2016-09-28 20:53 | Internal Med History&Physical ---
<Ramsay,Cate Kirk - Last Filed: 09/28/16 21:17> Date of Encounter: 09/28/16 Time of Encounter: 20:48 Assessment and Plan (1) Ascites Current visit: No Status: Acute with known cirrhosis. ABD severely distended and firm on admission. OSH PT elevated, will give dose vitamin K now, repeat Coags. One time dose IV lasix, IR consult for therapeutic paracentesis. Qualifiers: Ascites type: due to alcoholic hepatitis Qualified Code(s): K70.11 - Alcoholic hepatitis with ascites (2) Thrombocytopenia Current visit: No Status: Chronic secondary to hepatitis and cirrhosis. PLT 127, improved from 06/2016 labs. Monitor repeat CBC in AM (3) Hepatitis C Current visit: No Status: Chronic per hx. Has seen Dr. De La Cruz in the past. Consult GI if needed, otherwise can follow -up outpatient. LFTs pending Qualifiers: Viral hepatitis chronicity: chronic Hepatic coma status: without hepatic coma Qualified Code(s): B18.2 - Chronic viral hepatitis C (4) Chronic anemia Current visit: No Status: Acute per hx. Hgb 9.4 which is improved from 06/2016. Stable, monitor (5) COPD (chronic obstructive pulmonary disease) Current visit: No Status: Chronic per hx. No evidence of exacerbation on exam. Qualifiers: COPD type: unspecified COPD Qualified Code(s): J44.9 - Chronic obstructive pulmonary disease, unspecified (6) DVT prophylaxis Current visit: No Status: Acute SCDs Internal Medicine - H&P: HPI Chief complaint: my stomach is swollen Admitted From: Home Plans for Post Hospital Care: Home History of present illness: Ms. Shore is a 56 year old female with PMH Hep C, cirrhosis, GERD and COPD who presented to OSH with complaints of abdominal pain and swelling She was transferred to [facility] for paracentesis. Information obtained form chart review and patient report. Says last paracentesis was 06/2016 with not alot taken off. Says her stomach has slowly been getting bigger and "popped-up" over the last 3 days. She has not taken her diuretics over the last 3 days. She complains of constant, dull ABD pain, radiates to entire ABD, nothing makes better or worse, rates 10/10. No CP, no SOB Past Med Surg Social Fam HX - Past Medical History Medical history: cirrhosis, COPD, GERD, hepatitis Psychiatric history: anxiety, depression - Past Surgical History Surgical History: hysterectomy - Social History Smoking Status: Current every day smoker Packs per day: 1 Smokeless Tobacco Status: No Alcohol use: none Drug use: none - Family History Mother Name: Jayleen Harris Living Status: Age at : 52 Cause of : cancer Hx Family Cancer: Yes Sister Hx Family Endocrine Disorder: Yes (diabetes) Internal Medicine - H&P: Meds No Known Home Drugs 09/28/16 [History] Allergies Sulfa (Sulfonamide Antibiotics) Adverse Reaction (Verified 09/28/16 11:56) Gastrointestinal Upset All Systems PM: A 10-system review of systems was performed and is negative for pertinent findings except as documented above in the HPI. - Constitutional Constitutional: fatigue, no chills, no fever(s), no night sweats - EENT Eyes: no change in vision, no discharge, no pain, no photophobia Ears: no ear discharge, no ear pain, no tinnitus Nose, mouth and throat: no dysphagia, no nasal discharge, no neck pain, no sore throat - Cardiovascular Cardiovascular ROS IM: no chest pain, no diaphoresis, no dyspnea, no lightheadedness, no palpitations, no syncope - Respiratory Respiratory: no cough, no dyspnea, no wheezing, no excessive phlegm production - Gastrointestinal Gastrointestinal: abdominal pain, bloating, no diarrhea, no hematemesis, no hematochezia, no melena, no nausea, no vomiting - Genitourinary Genitourinary: no change in urinary stream, no dysuria, no flank pain, no hematuria - Musculoskeletal Musculoskeletal ROS IM: no numbness, no tingling - Integumentary Integumentary IM: no rash, no unusual bruising - Neurological Neurological ROS: no confusion, no convulsions, no focal weakness, no numbness, no tingling, no tremor(s) - Hematologic/Lymphatic Hematologic/Lymphatic: no easy bruising - Constitutional Vitals: Temp Pulse Resp BP Pulse Ox 98.0 F 98 17 112/76 94 09/28/16 18:57 09/28/16 18:57 09/28/16 18:57 09/28/16 18:57 09/28/16 18:57 General appearance: Present: A&O X 3, no acute distress - Head Head exam: Present: atraumatic, normocephalic - Eye Eye exam: Present: PERRL, conjuntiva pink, sclera anicteric Pupils: Present: PERRL - Neck Neck exam general surgery: Present: supple, trachea midline. Absent: lymphadenopathy - Respiratory Respiratory exam: Present: CTAB. Absent: accessory muscle use, rales, rhonchi, wheezes - Cardiovascular Cardiovascular exam: Present: RRR, +S1, +S2. Absent: diastolic murmur, gallop, rubs, systolic murmur - GI/Abdominal GI/Abdominal exam: Present: distended, normal bowel sounds, soft, no peritoneal signs. Absent: tenderness - Extremities Exam Extremities exam: Present: pedal edema, warm, radial pulses palpable and symetrical. Absent: calf tenderness, cyanotic - Neurological Exam Neurological exam: Present: CN II-XII intact, oriented X3, no focal deficits. Absent: pronater drift, facial droop, speech deficit - Skin Skin exam: Present: dry, intact <Antoni Ortez - Last Filed: 09/29/16 00:36> Date of Encounter: 09/29/16 - Constitutional Vitals: Temp Pulse Resp BP Pulse Ox 98.0 F 86 16 101/65 93 09/28/16 23:03 09/28/16 23:03 09/28/16 23:03 09/28/16 23:03 09/28/16 23:03 General appearance: Present: A&O X 3, no acute distress - Head Head exam: Present: atraumatic - Eye Eye exam: Present: PERRL. Absent: scleral icterus Pupils: Present: normal accommodation - Respiratory Respiratory exam: Present: CTAB. Absent: respiratory distress, rhonchi, wheezes - Cardiovascular Cardiovascular exam: Present: RRR, +S1, +S2 - GI/Abdominal GI/Abdominal exam: Present: distended, normal bowel sounds, tenderness (mild diffuse), no peritoneal signs. Absent: guarding, rebound Additional comments: + shifting dullness to percussion - Extremities Exam Extremities exam: Present: pedal edema, warm. Absent: calf tenderness - Neurological Exam Neurological exam: Present: alert, CN II-XII intact, oriented X3, no focal deficits - Skin Skin exam: Present: dry, warm Internal Med - H&P Results - Diagnostic Studies Chest x-ray Status: image reviewed by me (negative) - Attending Attestation I discussed the patient GALENA PMH, ROS, lab data, and exam findings with Cate Ramsay CNP. I then saw and examined patient independently as well. Pt complains of vague abdominal pain and ascites. However, on exam, she has minimal to no pain on exam. She has obvious ascites on exam. I suspect her symptoms will resolve with paracentesis. She has had no fevers, chills, or altered mental status to suggest SBP. We will follow her clinically, follow labs, and ask IR to proceed with paracentesis later today. Other than my comments and noted exam findings, I agree with Cate's assessment and plan.
[2016-09-29] MEDS: *HR* OxyCODONE Immed Rel 5 MG TABLET PO PRN ×2 (03:16→13:31)
[2016-09-29 04:25] LABS: Eosinophils % 1.6 %; Hemoglobin 7.7 g/dL (11.5-15.4); Immature Granulocytes % 0.5 % (0-4); Mean Corpuscular HGB Conc 32.1 g/dL (31.6-35.5); Red Cell Distribution Width 18.3 % (11.5-14.5)
[2016-09-29 04:27] LABS: Basophils % 0.8 %; Eosinophils # 0.1 K/mcL (0.0-0.6); Immature Platelets 2.9 % (1.1-6.1); Lymphocytes # 0.9 K/mcL (0.6-4.6); Mean Corpuscular Hemoglobin 30.6 pg (28.0-33.3); Mean Corpuscular Volume 95.2 fL (83.0-100.0); Monocytes # 0.4 K/mcL (0.0-1.3); Monocytes % 11.8 %; Neutrophils # 2.2 K/mcL (1.6-8.9); Platelet Count 105 K/mcL (140-400); Red Blood Count 2.52 M/mcL (3.82-4.97); Segmented Neutrophils % 60.3 %
[2016-09-29 04:30] LABS: INR 2.1; Prothrombin Time 23.2 Seconds (9.4-12.1)
[2016-09-29 04:33] LABS: Activated Partial Thrombo Time 37.5 Seconds (26.0-36.0)
[2016-09-29 04:50] LABS: BUN/Creatinine Ratio 21 (6-26); Blood Urea Nitrogen 16 mg/dL (7-20); Calcium 7.8 mg/dL (8.6-10.8); Carbon Dioxide 24 mEq/L (19-29); Chloride 107 mEq/L (98-109); Glucose 90 mg/dL (70-99); Osmolality,Calculated 287 (280-300); Potassium 3.2 mEq/L (3.5-4.5); Sodium 138 mEq/L (136-145); eGFR For African Americans > 60 (> 60); eGFR For Non-African Americans > 60 (> 60)
[2016-09-29 04:53] LABS: Albumin/Globulin Ratio 0.3 (1.1-2.2); Bilirubin,Indirect 1.4 mg/dL (0.0-1.2); Bilirubin,Total 2.4 mg/dL (0.2-1.2); Globulin 5.2 g/dL (2.4-3.5)
[2016-09-29 04:59] LABS: Albumin 1.8 g/dL (3.5-5.0)
[2016-09-29 05:21] LABS: Platelet Estimate Decreased (Normal)
[2016-09-29 05:22] LABS: Anisocytosis 1+ (Not Present); Poikilocytosis 1+ (Not Present)
[2016-09-29] MEDS ORDERED: *HR* OxyCODONE Immed Rel 5 MG TABLET PO ONE (07:15)
--- NOTE | 2016-09-29 10:30 | IR Procedure Note ---
Date of procedure: 09/29/16 Consent Obtained: Written consent Timeout: Correct patient and procedure verified, Time out performed, Skin prep completed Local anesthetic: Lidocaine 1% Indications: Ascites Procedure Performed: Paracentesis Complications: None; Tolerated procedure well (Monitor on floor)
[2016-09-29 11:15] VITALS: BP 93/61
[2016-09-29] MEDS: Albumin 25% 25gram/100mL 25 GM/100 ML IV.SOLN IVC SCH ×2 (11:53→13:34)
--- NOTE | 2016-09-29 13:32 | Discharge Summary ---
Date of Encounter: 09/29/16 Time of Encounter: 08:15 - Discharge Diagnosis (1) Ascites Priority: Primary Status: Chronic Comments: Patient has known history of cirrhosis with regular paracentesis performed. Abdomen is severely distended firm with fluid wave. Patient was given a one- time dose of IV Lasix. Patient had ultrasound-guided paracentesis today. Successful. A total of 9600 mL removed. Patient is receiving 50 g of albumin. Will be discharged after. Qualifiers: Ascites type: due to alcoholic hepatitis Qualified Code(s): K70.11 - Alcoholic hepatitis with ascites (2) COPD (chronic obstructive pulmonary disease) Priority: Secondary Status: Chronic Comments: No exacerbation at this time. Chronic. Continue home medications. Qualifiers: COPD type: unspecified COPD Qualified Code(s): J44.9 - Chronic obstructive pulmonary disease, unspecified (3) DVT prophylaxis Priority: Secondary Status: Acute Comments: SCD (4) Thrombocytopenia Priority: Secondary Status: Chronic Comments: Platelet 105 today. Greatly improved over baseline of 70s. Patient will follow up with primary care for continued evaluation. (5) Hepatitis C Priority: Secondary Status: Chronic Comments: Chronic. Patient sees Dr. De La Cruz. Follow-up outpatient. ALT and AST within normal limits. Qualifiers: Viral hepatitis chronicity: chronic Hepatic coma status: without hepatic coma Qualified Code(s): B18.2 - Chronic viral hepatitis C (6) Chronic anemia Priority: Secondary Status: Chronic Comments: Stable. At baseline. Follow-up outpatient for continued monitoring. Anemia of chronic disease. - Discharge Medications Home Medications: No Known Home Drugs 09/28/16 [History] Allergies/Adverse Reactions: Allergies Sulfa (Sulfonamide Antibiotics) Adverse Reaction (Verified 09/28/16 11:56) Gastrointestinal Upset Procedures/tests Complete & Pending: Procedures Performed prior 72 hours Category Date Time Status IR paracentesis ultrasound [IR] Routine IR 09/29/16 20:42 Completed Date of admission: 09/28/16 16:36 Primary care physician: Kailee Montanez Discharging clinician: Dayana Tellez Anticipated date of discharge: 09/29/16 - Patient Status Disposition: Home, Self-Care Condition: Good Functional capacity at discharge: wheelchair bound Overall status at discharge: patient is back to baseline - Discharge Instructions Instructions: Cirrhosis (DC), Ascites (GEN) Follow Up With: Kailee Montanez, TECHNICAL REP [Primary Care Provider] - (Please call and make an appointment in 7-10 days for hospital f/u OR call [phone] if requiring new PCP ) Additional Instructions: Follow-up with her primary care physician as scheduled. Continue her home medications. Follow-up with GI as scheduled. Return to the emergency department as needed for new or concerning problems or pain. - Diet and Activity Activity: increase activity as tolerated Diet: advance to your usual diet Hospital course: Ms. Shore is a 56 year old female - Time Spent with Patient Total time spent providing and/or coordinating discharge services: - Constitutional Vitals: Temp Pulse Resp BP Pulse Ox 98.2 F 87 15 93/61 96 09/29/16 11:12 09/29/16 11:12 09/29/16 11:12 09/29/16 11:12 09/29/16 11:12 General appearance: Present: A&O X 3, pleasant, no acute distress, answers questions appropriately - Head Head exam: Present: normal inspection - Eye Eye exam: Present: normal appearance, conjuntiva pink - Neck Neck exam general surgery: Present: normal inspection. Absent: lymphadenopathy , tenderness - Respiratory Respiratory exam: Present: decreased breath sounds. Absent: rales, respiratory distress, stridor, wheezes - Cardiovascular Cardiovascular exam: Present: RRR, systolic murmur - GI/Abdominal GI/Abdominal exam: Present: distended Additional comments: Bowel sounds not audible. Fluid wave present. - Extremities Exam Extremities exam: Present: warm, radial pulses palpable and symetrical. Absent : pedal edema, tenderness - Neurological Exam Neurological exam: Present: alert, oriented X3, no focal deficits, strengths equal and symetr throughout. Absent: facial droop, speech deficit
== END 2016-09-29 16:35 | disposition home or self-care (01) ==
LOC: 3BNU
PROVIDERS: ADMIT Internal Medicine; ATTEND Registered Nurse